=== PATIENT | female | born 1970 | race Caucasian/White ===

== ENCOUNTER 2018-01-18 10:05 | Outpatient (CLI) | payer BC, OTHER | END 2018-01-18 10:06 | disposition home or self-care (01) | LOC: BICMAMMO 10:05 | PROVIDERS: ATTEND Family Medicine | DX: N63.10 Unspecified lump in the right breast, unspecified quadrant (principal); N63.20 Unspecified lump in the left breast, unspecified quadrant; R92.8 Other abnormal and inconclusive findings on diagnostic imaging of breast; Z80.3 Family history of malignant neoplasm of breast | CPT/HCPCS: 76641; 77066; G0279 ==

== ENCOUNTER 2021-09-21 01:57 | Inpatient (IN) | payer OTHER ==
[2021-09-21 02:23] VITALS: BMI 36.6
[2021-09-21] MEDS ORDERED: Ondansetron ODT 4 MG TAB PO PRN (03:17)
[2021-09-21] MEDS ORDERED: Acetaminophen 650 MG Suppository PR PRN (03:17)
[2021-09-21] MEDS ORDERED: Ondansetron PF 4 MG/2 ML Vial IVP PRN (03:17)
[2021-09-21] MEDS ORDERED: Acetaminophen 325 MG TAB PO PRN (03:17)
[2021-09-21] MEDS ORDERED: Sodium Chloride 0.9% 1,000 ML IV SCH ×2 (04:30→08:43)
[2021-09-21 06:03] LABS: #Eosinphils 0.1 thou/uL (0.0-0.7); #Lymphocytes 1.7 thou/uL (1.20-3.40); #Monocytes 0.6 thou/uL (0.11-0.59); #Neutrophils 2.6 thou/uL (1.40-6.50); %Basophils 0.5 % (0.0-1.0); %Eosinophils 1.4 % (0.0-10.0); %Lymphocytes 33.6 % (21.0-51.0); %Monocytes 11.9 % (0.0-10.0); %Neutrophils 52.5 % (42.0-75.0); Hemoglobin 12.5 g/dL (12.0-16.0); Mean Corpuscular HGB CONC 33.3 g/dL (32.0-36.0); Mean Corpuscular Hemoglobin 31.1 pg (27.0-31.0); Mean Corpuscular Volume 93.4 fL (78.0-98.0); Mean Platelet Volume 7.8 fL (7.4-10.4); Platelet Count 178 thou/uL (130-400); RBC Distribution Width 12.1 % (11.5-14.5); Red Blood Cell (RBC) Count 4.02 mill/uL (4.20-5.40)
[2021-09-21 06:21] LABS: Anion Gap 9 mmol/L (10-20); BUN (Urea Nitrogen) 14 mg/dL (9.8-20.1); Calc. Creatinine Clearance 148 mL/min (70-130); Calcium 8.7 mg/dL (7.8-10.44); Carbon Dioxide 27 mmol/L (22-29); Chloride 107 mmol/L (98-107); Glucose 137 mg/dL (70-105); Sodium 139 mmol/L (136-145)
[2021-09-21] MEDS ORDERED: Electrolyte Replacement Protocol 1 EACH FS SCH (07:45)
[2021-09-21 08:04] VITALS: BP 132/89; TEMP 98.1
[2021-09-21 08:08] LABS: Magnesium 1.7 mg/dL (1.6-2.6); Phosphorus 3.8 mg/dL (2.3-4.7)
[2021-09-21] MEDS ORDERED: Magnesium 2 GM/50 ML 2 GM in Premix Bag 1 BAG IVPB SCH (08:15)
[2021-09-21] MEDS ORDERED: Morphine 2 MG/ML VIAL SLOW IVP SCH (08:30)
[2021-09-21] MEDS ORDERED: Morphine 4 MG/ML VIAL SLOW IVP SCH (08:30)
[2021-09-21] MEDS ORDERED: Lorazepam 2 MG/ML VIAL SLOW IVP PRN (08:46)
[2021-09-21] MEDS ORDERED: Morphine 2 MG/ML VIAL SLOW IVP PRN (08:49)
[2021-09-21] MEDS ORDERED: Pantoprazole 40 MG VIAL IVP SCH (09:00)
[2021-09-21] MEDS ORDERED: Sodium Chloride 0.65% Nasal 44 ML BOT EA NARE SCH (09:00)
[2021-09-21] MEDS ORDERED: Morphine 4 MG/ML VIAL SLOW IVP PRN (09:09)
[2021-09-21] MEDS ORDERED: PROPOFOL 200 MG/20 ML VIAL ONE (11:15)
[2021-09-21] MEDS ORDERED: Ondansetron PF 4 MG/2 ML Vial ONE (11:15)
[2021-09-21] MEDS ORDERED: Succinylcholine 200 MG/10 ml SYRINGE FS ONE (11:15)
[2021-09-21] MEDS ORDERED: Lidocaine 1% PF 5 ML VIAL ONE (11:15)
[2021-09-21] MEDS ORDERED: Dexamethasone 20 MG/5 ML VIAL ONE (11:15)
[2021-09-21] MEDS ORDERED: Glycopyrrolate 0.2 MG/ML 5 ML SYRINGE ONE (11:15)
[2021-09-21] MEDS ORDERED: Rocuronium Bromide 10 MG/ML (10ML VIAL) ONE (11:15)
[2021-09-21] MEDS ORDERED: SUGAMMADEX SODIUM 200 MG/2 ML VIAL ONE (11:33)
[2021-09-21] MEDS ORDERED: Metoclopramide HCl 10 MG/2 ML VIAL IVP PRN (11:55)
[2021-09-21] MEDS ORDERED: ALPRAZolam 1 MG TAB PO PRN (13:17)
[2021-09-23 12:39] LABS: HCV I.Units 19900000 IU/mL (.); HCV I.Units log10 7.299 (.); Hep C PCR-Quant See Final Results IU/mL (.)
== END 2021-09-21 13:20 | disposition left against medical advice (07) | DRG 382 ==
LOC: SURG B 01:57
PROVIDERS: ADMIT Student in an Organized Health Care Education/Training Program; ATTEND Internal Medicine
PROC: 0D9670Z Drainage of Stomach with Drainage Device, Via Natural or Artificial Opening (ICD-10-PCS; principal; 2021-09-21)
PROC: 0DB98ZX Excision of Duodenum, Via Natural or Artificial Opening Endoscopic, Diagnostic (ICD-10-PCS; 2021-09-21)
DX: K31.1 Adult hypertrophic pyloric stenosis (principal); K31.84 Gastroparesis; K80.20 Calculus of gallbladder without cholecystitis without obstruction; F41.9 Anxiety disorder, unspecified; E86.0 Dehydration; N18.2 Chronic kidney disease, stage 2 (mild); E83.42 Hypomagnesemia; G89.29 Other chronic pain; Z79.899 Other long term (current) drug therapy; F31.9 Bipolar disorder, unspecified; Z86.19 Personal history of other infectious and parasitic diseases
CPT/HCPCS: 36415; 71045; 80048; 83735; 84100; 85025; 87522; C9113; J2270; J3475; J7050